=== PATIENT | male | born 1995 | race Caucasian/White ===

== ENCOUNTER 2016-08-27 22:49 | Inpatient (IN) | payer OTHER ==
[~2016-08-27] VITALS: Ht 172.7 cm; Wt 80.6 kg
[2016-08-28 00:50] LABS: HEMATOCRIT 41.4 % (38.0-50.0); MCH 30.2 PG (29.0-34.0); MCHC 33.8 G/DL (30.0-36.0); MCV 89.2 FL (86-99); MEAN PLAT.VOLUME 8.7 uM^3 (9.0-12.4); PLATELET COUNT 305 K/uL (156-360); RBC DIS.WIDTH-CV 12.7 % (11.8-14.6); RBC DIS.WIDTH-SD 40.9 % (39-53); RED BLOOD COUNT 4.64 M/uL (4.00-5.50); WHITE BLOOD COUNT 9.4 K/uL (4.1-10.2)
[2016-08-28 01:00] LABS: CHLORIDE 108 mEq/L (99-109); POTASSIUM 3.7 mEq/L (3.7-5.4); SODIUM 143 mEq/L (136-147)
[2016-08-28 01:03] LABS: GLUCOSE 93 mg/dL (70-99)
[2016-08-28 01:04] LABS: ANION GAP 12 MEQ/L (2-14)
[2016-08-28 01:05] LABS: TOTAL BILIRUBIN 0.5 mg/dL (0.0-1.0)
[2016-08-28 01:06] LABS: ALKALINE PHOSPHATASE 78 IU/L (3-129); SERUM ETHYL ALCOHOL < 10 mg/dL
[2016-08-28 01:07] LABS: GFR ESTIMATE (CALCULATED) > 59 mL/min/
[2016-08-28 01:08] LABS: UREA NITROGEN (BUN) 20 mg/dL (9-23)
[2016-08-28 07:11] VITALS: BP 116/58
[2016-08-28 15:30] VITALS: BP 135/67
== END 2016-08-28 18:25 | disposition home or self-care (01) | DRG 90 ==
LOC: EME 22:49 → EDBD 22:49 → EDOF 08-28 01:54 → 3EAST 08-28 02:51
PROVIDERS: Emergency Medicine
DX: S06.0X1A Concussion with loss of consciousness of 30 minutes or less, initial encounter (principal); Y93.23 Activity, snow (alpine) (downhill) skiing, snowboarding, sledding, tobogganing and snow tubing; Y93.39 Activity, other involving climbing, rappelling and jumping off; Y92.9 Unspecified place or not applicable; Y99.9 Unspecified external cause status
CPT/HCPCS: 70450; 72125; 80053; 85027; 99281; 99284; G0480; J7120